=== PATIENT | female | born 1970 | race American Indian/Alaskan Native ===

== ENCOUNTER 2017-07-21 07:50 | Day surgery (SDC) | payer OTHER ==
[~2017-07-21] VITALS: Ht 152.4 cm; Wt 44.5 kg
[~2017-07-21 07:50] MED LIST: ACETAMINOPHEN-1 EAC1 PO; ACETAMINOPHEN500 MG PO; ACYCLOVIR200 MG PO; ACYCLOVIR800 MG PO; ALPRAZOLAM0.5 MG PO; AMITRIPTYLINE H10 MG PO; AMITRIPTYLINE H25 MG PO; AMOXICILLIN500 MG PO; ANUSOL-HC25 MG RC; BENTYL10 MG PO; BENTYL20 MG PO; BENZONATATE200 MG PO; BUTALB-ACETAMI1 EACH PO; CAL MAG ZINC +1 EAC1 PO; CALCIUM + D3 E1 EACH PO; CARBATROL200 MG PO; CEPHALEXIN500 MG PO; CIPRO500 MG PO; CIPROFLOXACIN250 MG PO; CIPROFLOXACIN500 MG PO; CLOBETASOL EMOL15 GM TOP; CLONAZEPAM0.5 MG PO; D3 DOTS2000 UNIT PO; DAYPRO600 MG PO; DICLOFENAC SODI50 MG PO; DICYCLOMINE HCL10 MG PO; DOCUSATE SODIU100 MG PO; DOXYCYCLINE HY100 MG PO; FERROUS GLUCON324 M1 PO; FIORICET 50-301 EACH PO; FIORINAL 50-321 EACH PO; FIRST-BXN MOUT237 ML MM; FLUOXETINE HCL10 MG PO; GABAPENTIN100 MG PO; GUANFACINE HCL1 MG PO; HYDROCODON-ACE1 EA10 PO; HYDROCODON-ACE1 EAC8 PO; HYDROXYZINE HCL25 MG PO; HYDROXYZINE HCL50 MG PO; I-PRIN200 MG PO; IBUPROFEN400 MG PO; IBUPROFEN600 MG PO; IBUPROFEN800 MG PO; IMITREX100 MG PO; KEFLEX500 MG PO; LEVAQUIN500 MG PO; MACROBID 100 M100 MG PO; MAGNESIUM OXID420 MG PO; MEDROL4 MG PO; METAMUCIL POWD283 GM PO; METHOCARBAMOL750 MG PO; METHYLPREDNISOLO4 M1 PO; MIRALAX17 GM PO; MOTRIN800 MG PO; MULTIPLE VITAM1 EACH PO; MULTIVITAMINS1 EAC7 PO; NAPROXEN500 MG PO; NEXIUM20 MG PO; NITROFURANTOIN100 MG PO; NORCO 10-325 T1 EACH PO; NORCO 5-325 TA1 EACH PO; OMEPRAZOLE20 MG PO; PENICILLIN V P500 MG PO; PENTASA250 MG PO; PREDNISONE20 MG PO; PREDNISONE5 MG PO; PREMARIN0.625 MG PO; PREPARATION H26 GM TOP; PRILOSEC OTC20 MG PO; PRILOSEC20 MG PO; PROPRANOLOL HCL10 MG PO; PROPRANOLOL HCL20 MG PO; PSYLLIUM FIBE0.52 GM PO; ROBAXIN-750750 MG PO; SALMON OIL 1,01 EACH PO; SOMA350 MG PO; SUMATRIPTAN SUC50 MG PO; TRAMADOL HCL50 MG PO; VICODIN 5-5001 EACH PO; XANAX0.5 MG PO; ZOFRAN ODT4 MG PO; ZOFRAN4 MG PO; ZOLPIDEM TARTRAT5 MG PO
--- NOTE | 2017-07-21 11:52 | NUR ---
07/21/17 1152 [place],Adelina IV IN UPPER RIGHT ARM, CDI ON ADMISSION. 1150 PT O2 SAT 100%, O2 REMOVED.
[2017-07-21] MEDS ORDERED: HYDROCODON-ACE1 EAC8 PO (12:47)
--- NOTE | 2017-07-21 13:45 | NUR ---
LE 1305 UP TO BATHROOM WITH ONE PERSON ASSIST. VOIDED. BACK IN ROOM GETTING DRESSED. 1325 LEFT VIA W/C TO CAR.
--- NOTE | 2017-07-23 07:17 | OR ---
[facility] [address] [place], [place] [address] Signed DATE OF OPERATION: 07/21/2017 SURGEON: Mynor Gloria MD PREOPERATIVE DIAGNOSIS: Partial detachment of the biceps anchor in the left shoulder. POSTOPERATIVE DIAGNOSIS: Partial detachment of the biceps anchor in the left shoulder with small labral tear. PROCEDURE: Shoulder arthroscopy with debridement of labral tear followed by mini open biceps tenodesis. SURGEON: Mynor Gloria MD. ANESTHESIA: General. SPECIMENS: There were no specimens. COMPLICATIONS: There were no complications. BLOOD LOSS: Minimal. WHAT WAS DONE: The patient was taken to the operating room. After anesthesia was induced, airway secured, the patient was positioned prepped and draped in a routine sterile fashion. The bony topography was outlined with a skin marking pen and the arthroscope was inserted through the standard posterior portal. An anterior portal was created using a switching stick technique. Diagnostic arthroscopy revealed an unremarkable glenoid and unremarkable humeral head. Subscapularis and the rotator cuff were similarly unremarkable. The labrum did have some fraying superiorly with a partial detachment of the biceps anchor. Through the anterior portal, we introduced the VAPR device and gently debrided the labrum back to a stable margin. We then irrigated the shoulder joint and withdrew the arthroscope. We then made a small anterior incision over the biceps tendon area. Skin was divided sharply. Subcutaneous tissue was bluntly spread. We identified the biceps tendon and released the transverse ligament. We then opened the rotator interval a small portion and placed a whipstitch through the biceps tendon and then completed its detachment from the labral anchor. We then used a 7-1/2 mm reamer and created a unicortical hole right at the base of the bicipital groove. We then used the whipstitch to maneuver the tendon over the hole and used a forked swivel lock (7.0 mm) to secure the tendon in the new bony tunnel. This gave us a very secure fixation of the Electronically Signed By: MYNOR GLORIA MD 07/23/17 0717 PATIENT NAME: CAMI PIERRE OPERATIVE REPORT DATE OF : 66 PHYSICIAN: MYNOR GLORIA MD REPORT #: [id number] REPORT IS CONFIDENTIAL AND NOT TO BE RELEASED WITHOUT AUTHORIZATION [facility] [address] [place] [id number] Signed tendon. The wound was then gently irrigated. The rotator interval was then closed with 0 FiberWire suture. The wound was again irrigated and closed in a standard fashion. A sterile dressing was applied and the patient was awakened to the recovery room where she arrived in stable condition. Counts were correct and antibiotic protocols were followed. MD JACOB Paz/MODL /[id number] Electronically Signed By: MYNOR GLORIA MD 07/23/17 0717 PATIENT NAME: YESSI PIERRERE OPERATIVE REPORT DATE OF : 66 PHYSICIAN: MYNOR GLORIA MD REPORT #: [id number] REPORT IS CONFIDENTIAL AND NOT TO BE RELEASED WITHOUT AUTHORIZATION
== END 2017-07-21 13:25 | disposition home or self-care (01) ==
LOC: OPS 07:50 → DS 07:50 → OPS 09:30 → DS 10:45 → OPS 10:45
PROVIDERS: Orthopaedic Surgery
PROC: 0RBK4ZZ Excision of Left Shoulder Joint, Percutaneous Endoscopic Approach (ICD-10-PCS; 2017-07-21)
PROC: 0LS40ZZ Reposition Left Upper Arm Tendon, Open Approach (ICD-10-PCS; principal; 2017-07-21 09:30)
DX: S43.402A Unspecified sprain of left shoulder joint, initial encounter (principal); D64.9 Anemia, unspecified; Z88.5 Allergy status to narcotic agent; Z88.8 Allergy status to other drugs, medicaments and biological substances; Z87.891 Personal history of nicotine dependence
CPT/HCPCS: 01630; 64415; 76942; C1713; J0690; J1100; J1170; J2250; J2405; J2704; J2795; J3010; J7120

== ENCOUNTER 2017-08-23 12:25 | Emergency (ER) | payer OTHER ==
[~2017-08-23] VITALS: Ht 152.4 cm; Wt 41.7 kg
[2017-08-23] MEDS ORDERED: SEROQUEL25 MG PO (13:02)
[2017-08-23] MEDS ORDERED: CLONIDINE HCL0.1 MG PO (13:02)
[2017-08-23] MEDS ORDERED: HYDROXYZINE HCL25 MG PO (13:02)
== END 2017-08-23 13:23 | disposition home or self-care (01) ==
LOC: ED 12:25
DX: F11.23 Opioid dependence with withdrawal (principal); Z90.49 Acquired absence of other specified parts of digestive tract; Z90.710 Acquired absence of both cervix and uterus; Z88.8 Allergy status to other drugs, medicaments and biological substances; Z79.899 Other long term (current) drug therapy
CPT/HCPCS: 81001; 99283

== ENCOUNTER 2017-08-26 12:04 | Emergency (ER) | payer OTHER ==
[~2017-08-26] VITALS: Ht 152.4 cm; Wt 41.7 kg
[~2017-08-26 12:04] MED LIST changes: +CLONIDINE HCL0.1 MG PO; +SEROQUEL25 MG PO
[2017-08-26] MEDS ORDERED: ZOFRAN ODT4 MG PO (12:49)
[2017-08-26] MEDS ORDERED: ATIVAN1 MG PO (12:49)
== END 2017-08-26 13:03 | disposition home or self-care (01) ==
LOC: ED 12:04
DX: F11.23 Opioid dependence with withdrawal (principal); Z90.49 Acquired absence of other specified parts of digestive tract; Z90.710 Acquired absence of both cervix and uterus; Z88.8 Allergy status to other drugs, medicaments and biological substances; Z88.6 Allergy status to analgesic agent; Z88.1 Allergy status to other antibiotic agents; Z79.899 Other long term (current) drug therapy
CPT/HCPCS: 99283

== ENCOUNTER 2017-11-03 05:35 | Day surgery (SDC) | payer OTHER ==
[~2017-11-03] VITALS: Ht 152.4 cm; Wt 45.4 kg
[~2017-11-03 05:35] MED LIST changes: +ATIVAN1 MG PO
--- NOTE | 2017-11-03 08:18 | NUR ---
11/03/17 0818 Beatriz Rodriguez 0707 PT SLEEPY WITH NO C/O'S. 0715 PT CRYING AND C/O L SHOULDER PAIN. 0717 FENTANYL 25MCG GIVEN IVP. 0724 SIPPING ON WATER. C/O L SHOULDER PAIN. FENTANYL 25MCG GIVEN IVP. 0730 EATING JELLO. NORCO 10/ GIVEN PO FOR 06/16 PAIN. 0745 C/O L SHOULDER PAIN 02/14. FENTANYL 25MCG GIVEN IVP. 0755 PT GETTING DRESSED. 0800 DC INSTRUCTIONS GIVEN. LEFT VIA W/C WITH TRANSPORT.
--- NOTE | 2017-11-05 07:09 | OR ---
[facility] [address] [place], [place] [address] Signed DATE OF OPERATION: 11/03/2017 SURGEON: Mynor Oconnor MD PREOPERATIVE DIAGNOSIS: Frozen shoulder, left. POSTOPERATIVE DIAGNOSIS: Frozen shoulder, left. PROCEDURE: Left shoulder manipulation. ANESTHESIA: IV sedation with a block. SPECIMENS AND COMPLICATIONS: There were no specimens or complications. BLOOD LOSS: There was no blood loss. WHAT WAS DONE: The patient was in the Day Surgery area. An IV has already been started in the contralateral arm. After the patient been adequately sedated with propofol and following her supraclavicular block, the arm was gently manipulated first into flexion and abduction and into external rotation. There was the sound of significant release of a scar tissue, as this was accomplished and the shoulder were quickly regained full range of motion. A documentary photograph was taken and the patient was recovered in the Day Surgery area. Mynor Oconnor MD WFB/MODL /[id number] Electronically Signed By: MYNOR OCONNOR MD 11/05/17 0709 PATIENT NAME: CAMI CONRAD OPERATIVE REPORT DATE OF : 66 REPORT #: [id number] PHYSICIAN: MYNOR OCONNOR MD PCP: KATHRIN ELIAS REPORT IS CONFIDENTIAL AND NOT TO BE RELEASED WITHOUT AUTHORIZATION [facility] [address] [place] [address] Signed Copies: ~ Electronically Signed By: MYNOR OCONNOR MD 11/05/17 0709 PATIENT NAME: ANAMARIAGLADYSCAMIJATINDER GORDON OPERATIVE REPORT DATE OF : 66 REPORT #: [id number] PHYSICIAN: MYNOR OCONNOR MD PCP: KATHRIN ELIAS REPORT IS CONFIDENTIAL AND NOT TO BE RELEASED WITHOUT AUTHORIZATION
== END 2017-11-03 08:00 | disposition home or self-care (01) ==
LOC: DS 05:35 → OPS 05:35 → DS 08:15 → OPS 08:15
PROVIDERS: Orthopaedic Surgery
PROC: 0RNK0ZZ Release Left Shoulder Joint, Open Approach (ICD-10-PCS; principal; 2017-11-03 08:15)
DX: M75.02 Adhesive capsulitis of left shoulder (principal); S02.5XXA Fracture of tooth (traumatic), initial encounter for closed fracture; G89.29 Other chronic pain; K75.9 Inflammatory liver disease, unspecified; Z88.8 Allergy status to other drugs, medicaments and biological substances; Z79.899 Other long term (current) drug therapy
CPT/HCPCS: 01620; 64415; 76942; J1100; J2704; J2795; J3010; J7120

== ENCOUNTER 2021-01-02 07:40 | Day surgery (SDC) | payer OTHER ==
[~2021-01-02] VITALS: Ht 152.4 cm; Wt 56.4 kg
--- NOTE | 2021-01-02 09:48 | NUR ---
01/02/21 0948 Iwona Acevedo 0939-PATIENT ARRIVED TO PACU ON 10 L MASK RR EVEN NONAROUSABLE ORAL AIRWAY IN PLACE. LAYING LEFT LATERAL. ABDOMEN SOFT. PATIENT HAS BRUISING TO BILATERAL LEGS. 0945-PATIENT AROUSING TO VERBAL STIMULI OPENING EYES ORAL AIRWAY REMOVED. PATIENT DROWSY DOZES BACK TO SLEEP. 6L MASK
--- NOTE | 2021-01-02 14:46 | OR ---
[facility] [address] [place], [place] [address] Signed DATE OF OPERATION: 01/02/2021 SURGEON: Trever Hubbard MD PREOPERATIVE DIAGNOSES: 1. History of peptic ulcer disease, gastroesophageal reflux disease, treated H. pylori and anemia. 2. Remote possible history of Crohn's disease. 3. History of narcotic abuse with concerns of irritable bowel syndrome and constipation, now resolved. 4. Personal history of colonic polyps 2017. 5. Maternal grandmother with rectal cancer in her late 70s or early 80s requiring a colostomy. 6. History of hepatitis. 7. Internal hemorrhoids. POSTOPERATIVE DIAGNOSES: 1. Mild diffuse punctate hemorrhagic gastritis. 2. Small hiatal hernia (34-32 cm). 3. Minimal to moderate internal and external hemorrhoids. PROCEDURES: 1. EGD with CLOtest and biopsy of the antrum and GE junction. 2. Colonoscopy without biopsy. ESTIMATED BLOOD LOSS: None. INDICATIONS: Babar is a 50-year-old female, asked to see me for followup upper and lower endoscopy. She describes her narcotic addiction on and off for more than 20 years. No narcotics for the last couple years. Now, she is doing great. She was down to 89 pounds, but is now up to 124 pounds and feels much better. She has had most of her GI symptoms essentially resolved off the narcotics. There was a previous history of peptic ulcer disease and possibly Crohn's disease in the remote past. No one has been able to confirm these issues. She has also been anemic in the past, but not today. She was told she had irritable bowel syndrome and all the test came out negative. Although that is again resolved now that she is off the narcotics. She also describes acid reflux. She was treated for Helicobacter pylori in the past. She really has no upper GI complaints currently. Dr. Mg Monroe performed an upper and lower endoscopy for her Electronically Signed By: TREVER HUBBARD MD 01/02/21 1446 PATIENT NAME: BABAR DAMON Mina OPERATIVE REPORT DATE OF : 66 REPORT #: [id number] PHYSICIAN: TREVER HUBBARD MD PCP: DIONNE ELIAS REPORT IS CONFIDENTIAL AND NOT TO BE RELEASED WITHOUT AUTHORIZATION [facility] [address] [place], [place] [address] Signed in 2012. She later that same year had a capsule endoscopy read by Dr. Catracho Simms. There were no major findings. Dr. Simms has since retired. Dr. Hubbard performed upper endoscopy in 2013, which revealed mild gastritis. At that time, she was negative for H. pylori. In 2013, she underwent an upper GI with small-bowel follow-through and it was negative. Also in 2013, she had a CT scan of the abdomen and pelvis along with an ultrasound and both were negative. In 2018, Dr. Antoine Álvarez performed upper and lower endoscopy for her. He took out several small polyps. We do not have the upper endoscopy report nor the pathology report unfortunately. He has since moved away as well. However, he recommended in his notes she should have followup endoscopy in 3 years and colonoscopy in 3-5 years. We think there is some concern for Saxena's esophagus, but we were not sure. She now has been asked to see me with respect to the above. She describes no upper or lower GI complaints now that she is off the narcotics. She reminded me that her maternal grandmother developed rectal cancer somewhere in the late 70s or early 80s. She ended up with a colostomy bag. In the office, we can see that her hemoglobin is good at 13.2 with a normal mean cell volume at 86. Platelet count is good at 2008. Her glucose slightly high at 114, but her BUN is good at 10 and her creatinine good at 0.5. Albumin is good at 3.9. Liver function tests are good with a total bilirubin of 0.6, AST 18, ALT 12, and alkaline phosphatase 84. We do not have a current INR level. In the office, I gave her pamphlets on both upper and lower endoscopy. She understands the two tests quite well. She understands there is risk including, but not limited to gas bloating, crampy abdominal pain, bleeding, perforation requiring surgery, and missed diagnosis. In addition, she has a significant past medical history including a long list of allergies. We have used anesthesia providers in the past with propofol and we scheduled her again in that same manner for today. She had expressed understanding and wished to proceed. PROCEDURE NOTE: Babar was taken into our endoscopy suite and placed in the supine semi-recumbent position. She was given IV sedation with propofol per our nurse senior control systems engineer. A bite block was utilized for the case. The adult gastroscope was introduced and we could see she has some edema around the arytenoid. The scope was passed easily then down the esophagus and all the way out into the third portion of the duodenum. The duodenum and pyloric channel were unremarkable. Once again, her stomach shows mild diffuse punctate hemorrhagic gastritis. No ulcerations. We took a biopsy of the antrum for pathologic review as well as CLOtest. Upon retroflexion of scope, we can see just a small hiatal hernia. It measured out roughly 34 cm back to 32 cm. She does have mild disruption to the Z-line, but no obvious Saxena's esophagus. No obvious esophageal varices. We went and took a single biopsy along the edge of the Z-line for pathologic review. The distal, middle and upper esophagus were unremarkable. After this, the adult gastroscope was removed. Babar tolerated the upper endoscopy quite well. Babar was then rotated into the left lateral decubitus position. She was maintained on Electronically Signed By: TREVER HUBBARD MD 01/02/21 1446 PATIENT NAME: BABAR DAMON [facility] OPERATIVE REPORT DATE OF : 66 REPORT #: [id number] PHYSICIAN: TREVER HUBBARD MD PCP: DIONNE ELIAS REPORT IS CONFIDENTIAL AND NOT TO BE RELEASED WITHOUT AUTHORIZATION [facility] [address] [place], [place] [address] Signed IV sedation with the propofol. We can see she has minimal to moderate external hemorrhoids. She has good sphincter tone. No masses noted. The adult colonoscope was introduced and advanced under direct visualization of camera up into the cecum itself. It took some mild abdominal compression in order to advance the scope since Babar is so small in stature. We could easily see the appendiceal orifice and the ileocecal valve. Her prep was good. The scope was then slowly withdrawn. There were no pathologic findings throughout the entire colon or rectum. Upon retroflexion of scope, she does have moderate-sized internal hemorrhoids. After this, the gas was suctioned out and colonoscope removed. Babar tolerated the lower endoscopy quite well. RECOMMENDATIONS: I will see Babar back in my office in 7 to 14 days to review her results. It sounds like she will need colonoscopy every 5 years based on polyps removed in [address] Álvarez. Trever Hubbard MD ALB/MODL /[id number] cc: MD Dionne Tracy Copies: TREVER HUBBARD MD, ELIZABETH ~ Electronically Signed By: TREVER HUBBARD MD 01/02/21 1446 PATIENT NAME: RAS HOPKINSBABAR Mina OPERATIVE REPORT DATE OF : 66 REPORT #: [id number] PHYSICIAN: TREVER HUBBARD MD PCP: DIONNE ELIAS REPORT IS CONFIDENTIAL AND NOT TO BE RELEASED WITHOUT AUTHORIZATION
--- NOTE | 2021-01-07 16:25 | PATH ---
[facility] [address] [place], [place] [address] Signed SPECIMEN(S): A ANTRUM/PYLORUS SPECIMEN(S): B GE JUNCTION SPECIMEN SOURCE: A. ANTRUM/PYLORUS B. GE JUNCTION CLINICAL HISTORY: History of H. pylori; history of colon polyps; family history of colon cancer. Postop diagnosis: Gastritis; small hiatal hernia; internal/external hemorrhoids MICROSCOPIC DESCRIPTION: Histologic sections of all submitted blocks are examined by light microscopy. These findings, together with the gross examination, support the pathologic diagnosis. FINAL PATHOLOGIC DIAGNOSIS: A. Stomach, antrum, biopsy: - Antral mucosa with chronic, inactive gastritis. - Negative for Helicobacter organisms (HE and IHC), see comment. - Negative for dysplasia or malignancy. B. Gastroesophageal junction, biopsy: - Squamous mucosa with minimal chronic inflammation. - Negative for intestinal metaplasia, dysplasia, or malignancy. COMMENT: Regarding specimen A: An H. pylori immunohistochemical stain (with appropriately staining controls) is negative for Helicobacter organisms. NAL:cml:C2NR GROSS DESCRIPTION: Two specimens are received in two containers, labeled "Babar David." A. The specimen, labeled " Joey Sheehan Ramanafaisal, #1," and designated as "Joey Sheehan, antrum/pylorus" is received in formalin and consists of one hu soft tissue fragment that measures 0.4 cm in greatest dimension. The specimen is entirely submitted in cassette (A1). B. The specimen, labeled " Joey Sheehan Babar, #2," and designated as "Joey Sheehan, GE junction" is received in formalin and consists of two white-hu soft tissue fragments that measure 0.2 and 0.4 cm in greatest dimension. The specimen is entirely submitted in cassette (B1). PATIENT NAME: BABAR DAVID RCMina PATHOLOGY DATE OF : 66 REPORT #: [id number] PHYSICIAN: ANDRES PATHOLOGY PCP: KATHRIN ELIAS REPORT IS CONFIDENTIAL AND NOT TO BE RELEASED WITHOUT AUTHORIZATION [facility] [address] [place] [address] Signed FB (under the direct supervision of a pathologist) The Gross Description was prepared using a voice recognition system. The report was reviewed for accuracy; however, sound-alike word errors, addition and/or deletions may occur. If there is any question about this report, please contact Client Services. PERFORMING LABORATORY: The technical component was performed by [facility] [address] (Statistical Methods Teacher: Adelina Maldonado MD; CLIA# [id number]). Professional interpretation was performed by [facility], [address] [address] (CLIA# [id number]). Diagnostician: Yelitza Chong MD Pathologist Electronically Signed 01/07/2021 Copies: ~ PATIENT NAME: BABAR DAVID RCMina PATHOLOGY DATE OF : 66 REPORT #: [id number] PHYSICIAN: ANDRES VELASQUEZ PCP: KATHRIN ELIAS REPORT IS CONFIDENTIAL AND NOT TO BE RELEASED WITHOUT AUTHORIZATION
== END 2021-01-02 10:25 | disposition home or self-care (01) ==
LOC: OPS 07:40 → DS 07:40 → OPS 09:00 → DS 09:00 → OPS 10:25
PROVIDERS: ATTEND Colon & Rectal Surgery
PROC: 0DB68ZZ Excision of Stomach, Via Natural or Artificial Opening Endoscopic (ICD-10-PCS; principal; 2021-01-02 09:00)
PROC: 0DJD8ZZ Inspection of Lower Intestinal Tract, Via Natural or Artificial Opening Endoscopic (ICD-10-PCS; 2021-01-02 09:00)
DX: K21.00 Gastro-esophageal reflux disease with esophagitis, without bleeding (principal); K29.51 Unspecified chronic gastritis with bleeding; K64.8 Other hemorrhoids; F11.21 Opioid dependence, in remission; K44.9 Diaphragmatic hernia without obstruction or gangrene; K64.4 Residual hemorrhoidal skin tags; G89.29 Other chronic pain; F40.240 Claustrophobia; F40.01 Agoraphobia with panic disorder; Z86.2 Personal history of diseases of the blood and blood-forming organs and certain disorders involving the immune mechanism; Z87.11 Personal history of peptic ulcer disease; Z86.010 Personal history of colon polyps; Z80.0 Family history of malignant neoplasm of digestive organs; Z88.8 Allergy status to other drugs, medicaments and biological substances; Z88.6 Allergy status to analgesic agent; Z88.1 Allergy status to other antibiotic agents; Z86.19 Personal history of other infectious and parasitic diseases; Z87.891 Personal history of nicotine dependence; Z90.49 Acquired absence of other specified parts of digestive tract
CPT/HCPCS: 86677; J2704; J7121